=== PATIENT | female | born 1990 | race Caucasian/White ===

== ENCOUNTER 2019-04-15 18:14 | Emergency (ER) | payer OTHER ==
[~2019-04-15] VITALS: Ht 154.9 cm; Wt 49.9 kg
[2019-04-15] MEDS ORDERED: ALLEGRA ALLERG180 MG (18:30)
== END 2019-04-15 21:50 | disposition home or self-care (01) ==
LOC: ER 18:14
DX: J11.1 Influenza due to unidentified influenza virus with other respiratory manifestations (principal)

== ENCOUNTER 2023-02-25 07:30 | Emergency (ER) | payer OTHER ==
[~2023-02-25] VITALS: Ht 154.9 cm; Wt 53.1 kg
[~2023-02-25 07:30] MED LIST: ALLEGRA ALLERG180 MG
[2023-02-25 09:09] LABS: HEMATOCRIT 42.5 % (36.0-45.00); HEMOGLOBIN 14.2 g/dL (12.0-15.00); MEAN CELL VOLUME 91.3 fL (80.00-100.00); MEAN CORPUSCULAR HEMOGLOBIN 30.6 pg (27.00-32.0); MEAN CORPUSCULAR HGB CONC 33.5 g/dl (32.0-36.0); PLATELET COUNT 130 K/uL (150-450); RED BLOOD COUNT 4.65 M/uL (4.00-6.00); RED CELL DISTRIBUTION WIDTH 12.9 % (11.5-14.5)
[2023-02-25 10:08] LABS: PH,URINE 5.5 (5.0-8.0); URINE APPEARANCE Clear; URINE BILIRRUBIN Negative (NEGATIVE); URINE BLOOD Negative; URINE COLOR Dark Yellow; URINE GLUCOSE Negative (NEGATIVE); URINE LEUKOCYTE Small; URINE NITRATE Negative; URINE PROTEIN 30 (NEGATIVE)
[2023-02-25 10:09] LABS: URINE EPITHELIAL CELLS 49.1 uL (0.0-38.8); URINE RBC 14.3 uL (0.0-20.8); URINE WBC 52.8 uL (0.0-23.2)
[2023-02-25 10:59] LABS: URINE CRYSTALS NEGATIVE /HPF
== END 2023-02-25 13:24 | disposition home or self-care (01) ==
LOC: ER 07:30
PROVIDERS: Emergency Medicine
DX: N39.0 Urinary tract infection, site not specified (principal); R53.81 Other malaise; Z20.822 Contact with and (suspected) exposure to COVID-19

== ENCOUNTER 2023-04-27 09:38 | Emergency (ER) | payer OTHER ==
[~2023-04-27] VITALS: Ht 154.9 cm; Wt 49.9 kg
== END 2023-04-27 14:51 | disposition home or self-care (01) ==
LOC: ER 09:38
DX: L50.9 Urticaria, unspecified (principal)

== ENCOUNTER 2023-04-29 00:14 | Emergency (ER) | payer OTHER ==
[~2023-04-29] VITALS: Ht 154.9 cm; Wt 49.9 kg
== END 2023-04-29 02:33 | disposition home or self-care (01) ==
LOC: ER 00:15
DX: L50.8 Other urticaria (principal)

== ENCOUNTER → 2023-12-16 | Emergency (ER) | payer OTHER ==
[~2023-12-16] VITALS: Ht 154.9 cm; Wt 49.9 kg
== END | disposition left against medical advice (07) ==
LOC: ER 00:06
DX: Z53.21 Procedure and treatment not carried out due to patient leaving prior to being seen by health care provider (principal)